=== PATIENT | female | born 1960 | race Caucasian/White ===

== ENCOUNTER 2018-12-20 08:15 | Emergency (ER) | payer MEDICAID, OTHER ==
[~2018-12-20] VITALS: Ht 165.1 cm; Wt 80.0 kg
[2018-12-20] MEDS ORDERED: BENA5TAB6 PO (08:24)
[2018-12-20] MEDS ORDERED: IBUPROFEN 600MG TABLET PO ONE (10:15)
[2018-12-20] MEDS ORDERED: HYDROCODONE/ACETAMINOPHEN 5/325MG TABLET PO ONE (12:15)
[2018-12-20 12:30] VITALS: BP 134/94
== END 2018-12-20 12:34 | disposition home or self-care (01) ==
LOC: ER 08:15
DX: S82.001A Unspecified fracture of right patella, initial encounter for closed fracture (principal); I10 Essential (primary) hypertension; Z79.899 Other long term (current) drug therapy; W18.39XA Other fall on same level, initial encounter; Y93.89 Activity, other specified; Y92.89 Other specified places as the place of occurrence of the external cause; Y99.8 Other external cause status
CPT/HCPCS: 73562; 99283; L1830; Z7610